=== PATIENT | male | born 1995 | race Caucasian/White ===

== ENCOUNTER 2022-11-11 20:54 | Outpatient (CLI) | payer OTHER, SELFPAY ==
--- NOTE | 2022-11-18 09:43 | W.PM.SLEEP ---
Sleep Study Details Details Interpreting Provider: Axel Date of Sleep Study: 11/11/22 Sleep Study Details: STUDY TYPE:? Hospital polysomnogram without CPAP ? BMI:? 21 ORDERING PROVIDER:? Briana INDICATION:? Concerns about sleep apnea ? SLEEP SUMMARY:? Total sleep time 447.5 minutes, efficiency 94.6, arousal index 8.7 RESPIRATORY SUMMARY:? Mean oxygen awake 95 asleep 95 minimum 92 AHI 1.7 RDI 3.9. Minimal positional variation. The nonsupine REM AHI was 8.3 PERIODIC LIMB MOVEMENTS OF SLEEP:? None CARDIAC:? Awake 67, asleep 59 no arrhythmias noted IMPRESSION:? The entire study was was within normal limits with the exception of the nonsupine REM AHI of 8.3 RECOMMENDATION: If sleep disorder is strongly suspected would recommend a repeat study followed by a multiple sleep latency test.
== END 2022-11-11 20:55 | disposition home or self-care (01) ==
LOC: SLEEP 20:56
PROVIDERS: PCP Family Medicine; Visit Provider Family Medicine
DX: G47.10 Hypersomnia, unspecified (principal); R06.83 Snoring
CPT/HCPCS: 95810